=== PATIENT | female | born 1960 | race Caucasian/White ===

== ENCOUNTER → 2016-08-12 | Outpatient (CLI) | payer OTHER ==
[~2016-08-12] MED LIST: ALBU1AER9 INH; ASPEC81 PO; ASPI81TA28 PO; BUPR-79 PO; CLC100 PO; EST1 PO; ESTR0.3T PO; FLX10 PO; LEVO1TAB33 PO; MDRDP21 PO; TOPI25TA99 PO; VALA1TAB2 PO; VNTHFA/IN INH; WLLSR150 PO
[2016-08-12 09:31] LABS: BASO % 0.8 %; BASO ABS # 0.06 K/uL (0-0.2); COMPLETE YES; EOS % 3.7 %; HEMATOCRIT 47.8 % (37-47); IG% 0.3 %; LYMPH % 29.4 %; LYMPH ABS # 2.08 K/uL (1.2-3.4); MEAN CELL VOLUME 91.6 fL (80-100); MEAN CORPUSCULAR HEMOGLOBIN 31.2 pg (25-34); MEAN CORPUSCULAR HGB CONC 34.1 g/dl (32-36); MEAN PLATELET VOLUME 11.1 fL (7.4-10.4); MONO % 7.5 %; NEUT % 58.3 %; PLATELET COUNT 230 K/uL (130-400); RED BLOOD COUNT 5.22 M/uL (4.2-5.4); WHITE BLOOD COUNT 7.08 K/uL (4.8-10.8)
[2016-08-12 10:03] LABS: ALT/SGPT 23 U/L (12-78); BLOOD UREA NITROGEN 13 mg/dl (7-18); BUN/CREATININE RATIO 13.8 (10-20); CARBON DIOXIDE 27 mmol/L (21-32); CHLORIDE 107 mmol/L (98-107); CREATININE 0.92 mg/dl (0.60-1.20); GLUCOSE 71 mg/dl (70-99); POTASSIUM 4.1 mmol/L (3.5-5.1); SODIUM 140 mmol/L (136-145)
[2016-08-12 10:06] LABS: ALB/GLOB RATIO 1.1 (0.9-2); ALKALINE PHOSPHATASE 86 U/L (45-117); AST/SGOT 15 U/L (15-37)
[2016-08-22 10:54] LABS: O&P SOURCE OTHER-STOOL
== END | disposition home or self-care (01) ==
LOC: C.LAB 08:31
PROVIDERS: ATTEND Physician Assistant
DX: R19.7 Diarrhea, unspecified (principal)

== ENCOUNTER 2016-10-26 10:03 | Emergency (ER) | payer OTHER ==
[~2016-10-26] VITALS: Ht 160 cm; Wt 63.1 kg
[~2016-10-26 10:03] MED LIST changes: -ASPI81TA28 PO; -EST1 PO; -VNTHFA/IN INH; -WLLSR150 PO
[2016-10-26 10:05] VITALS: TEMP 36.5; Ht 160 cm; Wt 63.1 kg
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
[2016-10-26] MEDS ORDERED: WLLSR150 PO (11:11)
[2016-10-26] MEDS ORDERED: VNTHFA/IN INH (11:11)
[2016-10-26] MEDS ORDERED: ASPI81TA28 PO (11:11)
[2016-10-26] MEDS ORDERED: EST1 PO (11:11)
[2016-10-26 11:21] VITALS: BP 135/82; PULSE 76; O2SAT 95
== END 2016-10-26 11:21 | disposition home or self-care (01) ==
LOC: C.EDB 10:04 → C.EDC 11:21
DX: M54.2 Cervicalgia (principal); V43.52XA Car driver injured in collision with other type car in traffic accident, initial encounter; F17.200 Nicotine dependence, unspecified, uncomplicated; Z79.82 Long term (current) use of aspirin; Z79.899 Other long term (current) drug therapy

== ENCOUNTER 2017-06-20 12:23 | Emergency (ER) | payer OTHER ==
[~2017-06-20] VITALS: Ht 160 cm; Wt 65.2 kg
[~2017-06-20 12:23] MED LIST changes: -ALBU1AER9 INH; -ASPEC81 PO; +ASPI81TA28 PO; -BUPR-79 PO; -CLC100 PO; +CYM/30 PO; +DICL-201 PO; +EST1 PO; -ESTR0.3T PO; +GABA-113 PO; -LEVO1TAB33 PO; -MDRDP21 PO; -TOPI25TA99 PO; -VALA1TAB2 PO; +VNTHFA/IN INH; +WLLSR150 PO; +ZOLM1TAB3 PO
[2017-06-20 12:27] VITALS: TEMP 36.6; Ht 160 cm; Wt 65.2 kg
[2017-06-20] MEDS ORDERED: MoRPHine SULFATE 4 MG/ML 1 ML CARP\\VIAL IV STA (12:39)
[2017-06-20] MEDS ORDERED: ONDANSETRON INJ 2 MG/ML 2 ML VIAL IV STA (12:39)
[2017-06-20 13:16] LABS: BASO ABS # 0.07 K/uL (0-0.2); EOS ABS # 0.27 K/uL (0-0.5); HEMATOCRIT 44.6 % (37-47); HEMOGLOBIN 15.9 g/dL (12.0-16.0); IG# 0.01 K/uL (0.00-0.02); LYMPH ABS # 2.11 K/uL (1.2-3.4); MEAN CELL VOLUME 88.3 fL (80-100); MEAN CORPUSCULAR HEMOGLOBIN 31.5 pg (25-34); MEAN CORPUSCULAR HGB CONC 35.7 g/dl (32-36); MEAN PLATELET VOLUME 10.9 fL (7.4-10.4); MONO % 6.6 %; MONO ABS # 0.45 K/uL (0.11-0.59); NEUT % 57.3 %; NEUT ABS # 3.89 K/uL (1.4-6.5); PLATELET COUNT 239 K/uL (130-400); RED CELL DISTRIBUTION WIDTH CV 13.2 % (11.5-14.5); RED CELL DISTRIBUTION WIDTH SD 42.6 fL (36.4-46.3)
--- NOTE | 2017-06-20 13:29 | DIAGNOSTIC IMAGING REPORT ---
CT SCAN OF THE ABDOMEN AND PELVIS WITHOUT CONTRAST CLINICAL HISTORY: Severe left flank pain COMPARISON STUDY: CT scan of chest dated 07/02/2013 TECHNIQUE: CT scan of the abdomen and pelvis was performed from the lung bases to the proximal femurs. Images are reviewed in the axial, sagittal, and coronal planes. IV contrast was not administered for this examination. A dose lowering technique was utilized adhering to the principles of ALARA. CT DOSE: FINDINGS: Lower chest: There is suspected underlying pulmonary emphysema. There are dependent atelectatic changes. There is a small right-sided Bochdalek hernia. Liver: There is a stable and therefore likely benign indeterminate 14 mm hypodensity within the left hepatic lobe containing internal calcifications. 2 additional smaller left lobe hypodensities approach water attenuation likely represent cysts. There is a to small to characterize 4 mm hypodensity within the right hepatic lobe Gallbladder: Unremarkable. Spleen: Normal in size and attenuation. Pancreas: Unremarkable. Adrenal glands: Unremarkable. Kidneys: There are multiple bilateral tiny renal calculi. There is very slight prominence the right renal pelvis and ureter. This is of doubtful clinical significance as the patient's pain is reportedly left-sided. No ureteral or bladder calculi are visualized. Bowel: There are no transition zones indicate bowel obstruction. There is colonic diverticulosis. There are no acute peridiverticular inflammatory changes. The appendix is felt to be normal. Peritoneum: There is no intraperitoneal free air or abdominal ascites. Vasculature: The abdominal aorta is normal in course and caliber. Adenopathy: None. Pelvic viscera: The uterus is surgically absent Skeletal structures: No destructive osseous lesions are seen. IMPRESSION: 1. No evidence of bowel obstruction. No evidence of free air 2. Normal appendix 3. Diverticulosis. No evidence of acute diverticulitis 4. Bilateral nephrolithiasis. No ureteral calculi identified. Electronically signed by: Femi Martinez M.D. 06/20/2017 1:28 PM Dictated Date/Time: 06/20/2017 1:21 PM
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
[2017-06-20 13:36] LABS: CALCIUM 9.2 mg/dl (8.5-10.1); CREATININE 0.84 mg/dl (0.60-1.20)
[2017-06-20] MEDS ORDERED: OXYCODONE HCL IR 5 MG TAB (IMMEDIATE RELEASE) PO STA (14:14)
[2017-06-20 14:39] VITALS: BP 130/85; PULSE 66; O2SAT 99
[2017-06-20] MEDS ORDERED: OXYC1TAB3 PO (14:40)
--- NOTE | 2017-06-20 18:42 | EMERGENCY ROOM VISIT NOTE ---
History Report prepared by Sammi: David Valentine Under the Supervision of: Dr. Adam Christopher M.D. First contact with patient: 12:31 Chief Complaint: FLANK PAIN Stated Complaint: SEVERE PAIN IN L SIDE History of Present Illness The patient is a 57 year old female who presents to the Emergency Room with complaints of persistent left-sided flank pain that started around 2200 last night. She states that she was just sitting down when the pain came on. She notes that there is a consistent soreness and an intermittent shooting pain. She says that the pain goes down into her left buttock. The patient states that the pain worsens with movement, urination, and coughing. She adds that she has had some dizziness, and notes that there is no burning with urination but it feels "warm" when she urinates. She says that she can "feel the warmth". The patient notes that she called her primary care physician earlier today, and was told to call pain management. Pain management then told her to come here for evaluation, especially since the pain is "up high" and hurts to the touch. The patient has a history of degenerative disc disease, and goes to pain management for ablations and blocks. She notes that she has an extensive history of back problems and sciatic nerve problems, but says that this pain does not feel like a sciatic nerve problem. She states that she is due for another ablation on the , and had a block done 2 months ago. The patient says that she is on muscle relaxers, Gabapentin, and Tramadol, but nothing really works for her chronic pain. She adds that she has been healthy otherwise, and denies any fevers, vomiting, abdominal pain, or blood in her urine. Source of History: patient Onset: 0 last night Position: other (left flank) Quality: ache, other (shooting) Timing: other (persistent) Modifying Factors (Worsening): movement, other (coughing, urinating) Associated Symptoms: + urinary symptoms (feels warm, denies pain or blood), No fevers, No vomiting, No abdominal pain Note: Associated symptoms: Pain down to left buttock. Dizziness. Review of Systems See HPI for pertinent positives & negatives. A total of 10 systems reviewed and were otherwise negative. Past Medical & Surgical Medical Problems: (1) Bronchitis (2) Degenerative disc disease Family History Diabetes mellitus Heart disease Hypertension Seizures Social History Smoking Status: Current Every Day Smoker Drug Use: none Housing Status: lives alone Occupation Status: employed Current/Historical Medications Scheduled Aspirin (Aspirin Ec), 81 MG PO DAILY Bupropion HCl (Bupropion HCl Sr), 1 TAB PO BID Duloxetine HCl (Cymbalta), 1 CAP PO DAILY Estradiol (Estradiol), 1 TAB PO DAILY Gabapentin (Neurontin), 300 MG PO BID Zolmitriptan (Zomig), 5 MG PO PRN Scheduled PRN Albuterol Hfa (Ventolin Hfa), 2-4 PUFFS INH Q6H PRN for SOB/Wheezing Cyclobenzaprine HCl (Cyclobenzaprine HCl), 5-10 MG PO TID PRN for Pain Diclofenac (Voltaren), 75 MG PO BID PRN for prn Oxycodone Ir (Roxicodone Ir), 5 MG PO Q4H PRN for Pain Allergies Coded Allergies: Sulfa Drugs (Verified Allergy, Mild, 06/20/17) Sulfamethoxazole (Verified Allergy, Mild, 06/20/17) Trimethoprim (Verified Allergy, Mild, 06/20/17) Penicillins (Verified Allergy, Unknown, 06/20/17) Physical Exam Vital Signs Date Time Temp Pulse Resp B/P (MAP) Pulse Ox O2 Delivery O2 Flow Rate FiO2 06/20/17 14:39 66 16 130/85 99 06/20/17 12:27 36.6 72 20 122/77 96 Room Air Physical Exam Constitutional: Vital signs reviewed. Eyes: Pupils are equal round reactive to light. Conjunctiva are noninjected. ENT: Pharynx is clear without erythema or exudate. Mucous membranes are moist. Neck supple without meningeal signs. Respiratory: Clear to auscultation bilaterally. Breath sounds are equal bilaterally. Cardiovascular: Regular rate and rhythm. No rubs or gallops. GI: Soft, nondistended and nontender. Bowel sounds are present. Musculoskeletal: No midline tenderness to the thoracic or lumbosacral spine. No CVA tenderness. Positive straight leg raise at 10 degrees on left side, negative on right. Integumentary: No cyanosis. Neurological: The patient is awake and alert. No focal deficits. Motor and sensation intact in lower extremities. Psychiatric: Normal affect. Medical Decision & Procedures ER Provider Diagnostic Interpretation: CT results as stated below per my review and radiologist interpretation. LUMBAR SPINE WITHOUT CLINICAL HISTORY: 57 years-old Female presenting with eval for fx, left flank pain, pain began at 10:00 PM last night. TECHNIQUE: Multidetector CT of the lumbar spine was performed without the use of intravenous contrast. IV contrast: None. A dose lowering technique was used consistent with the principles of ALARA (as low as reasonably achievable). COMPARISON: Plain radiographs of the lumbar spine from 01/25/2016. CT DOSE (mGy.cm): The estimated cumulative dose is 665.43 mGy.cm. FINDINGS: Associate Product Manager topogram: Unremarkable. Normal lumbar lordosis. No scoliosis. Vertebral bodies maintain normal height and alignment. Intervertebral disc heights preserved. Mild anterolateral osteophytosis. No osseous neural foraminal or spinal canal narrowing. Allowing for limitations of CT, no convincing evidence of a significant disc bulge though small disc bulges may be present. There may be soft tissue narrowing of the left neural foramina at L4-5 (series 401 image 28). No acute fracture or subluxation. Mild degenerative changes of the sacroiliac joints. Visualized portion of the sacrum intact. Soft tissues demonstrate nonobstructing bilateral renal calculi. IMPRESSION: 1. No acute osseous injury. 2. Mild multilevel degenerative changes with suspected soft tissue narrowing of the left neural foramina at L4-5. 3. Bilateral nonobstructing renal calculi. Electronically signed by: Jose Reyes M.D. 06/20/2017 1:31 PM Dictated Date/Time: 06/20/2017 1:[address] SCAN OF THE ABDOMEN AND PELVIS WITHOUT CONTRAST CLINICAL HISTORY: Severe left flank pain COMPARISON STUDY: CT scan of chest dated 07/02/2013 TECHNIQUE: CT scan of the abdomen and pelvis was performed from the lung bases to the proximal femurs. Images are reviewed in the axial, sagittal, and coronal planes. IV contrast was not administered for this examination. A dose lowering technique was utilized adhering to the principles of ALARA. CT DOSE: FINDINGS: Lower chest: There is suspected underlying pulmonary emphysema. There are dependent atelectatic changes. There is a small right-sided Bochdalek hernia. Liver: There is a stable and therefore likely benign indeterminate 14 mm hypodensity within the left hepatic lobe containing internal calcifications. 2 additional smaller left lobe hypodensities approach water attenuation likely represent cysts. There is a to small to characterize 4 mm hypodensity within the right hepatic lobe Gallbladder: Unremarkable. Spleen: Normal in size and attenuation. Pancreas: Unremarkable. Adrenal glands: Unremarkable. Kidneys: There are multiple bilateral tiny renal calculi. There is very slight prominence the right renal pelvis and ureter. This is of doubtful clinical significance as the patient's pain is reportedly left-sided. No ureteral or bladder calculi are visualized. Bowel: There are no transition zones indicate bowel obstruction. There is colonic diverticulosis. There are no acute peridiverticular inflammatory changes. The appendix is felt to be normal. Peritoneum: There is no intraperitoneal free air or abdominal ascites. Vasculature: The abdominal aorta is normal in course and caliber. Adenopathy: None. Pelvic viscera: The uterus is surgically absent Skeletal structures: No destructive osseous lesions are seen. IMPRESSION: 1. No evidence of bowel obstruction. No evidence of free air 2. Normal appendix 3. Diverticulosis. No evidence of acute diverticulitis 4. Bilateral nephrolithiasis. No ureteral calculi identified. Electronically signed by: Femi Martinez M.D. 06/20/2017 1:28 PM Dictated Date/Time: 06/20/2017 1:21 PM Laboratory Results 06/20/17 13:00 Red Blood Count 5.05, Mean Corpuscular Volume 88.3, Mean Corpuscular Hemoglobin 31.5, Mean Corpuscular Hemoglobin Concent 35.7, Mean Platelet Volume 10.9, Neutrophils (%) (Auto) 57.3, Lymphocytes (%) (Auto) 31.0, Monocytes (%) (Auto) 6.6, Eosinophils (%) (Auto) 4.0, Basophils (%) (Auto) 1.0, Neutrophils # (Auto) 3.89, Lymphocytes # (Auto) 2.11, Monocytes # (Auto) 0.45, Eosinophils # (Auto) 0.27, Basophils # (Auto) 0.07 06/20/17 13:00 Test 06/20/17 13:00 White Blood Count 6.80 K/uL (4.8-10.8) Red Blood Count 5.05 M/uL (4.2-5.4) Hemoglobin 15.9 g/dL (12.0-16.0) Hematocrit 44.6 % (37-47) Mean Corpuscular Volume 88.3 fL (80-100) Mean Corpuscular Hemoglobin 31.5 pg (25-34) Mean Corpuscular Hemoglobin Concent 35.7 g/dl (32-36) Platelet Count 239 K/uL (130-400) Mean Platelet Volume 10.9 fL (7.4-10.4) Neutrophils (%) (Auto) 57.3 % Lymphocytes (%) (Auto) 31.0 % Monocytes (%) (Auto) 6.6 % Eosinophils (%) (Auto) 4.0 % Basophils (%) (Auto) 1.0 % Neutrophils # (Auto) 3.89 K/uL (1.4-6.5) Lymphocytes # (Auto) 2.11 K/uL (1.2-3.4) Monocytes # (Auto) 0.45 K/uL (0.11-0.59) Eosinophils # (Auto) 0.27 K/uL (0-0.5) Basophils # (Auto) 0.07 K/uL (0-0.2) RDW Standard Deviation 42.6 fL (36.4-46.3) RDW Coefficient of Variation 13.2 % (11.5-14.5) Immature Granulocyte % (Auto) 0.1 % Immature Granulocyte # (Auto) 0.01 K/uL (0.00-0.02) Urine Color YELLOW Urine Appearance CLEAR (CLEAR) Urine pH 7.5 (4.5-7.5) Urine Specific [place] 1.010 (1.000-1.030) Urine Protein NEG (NEG) Urine Glucose (UA) NEG (NEG) Urine Ketones NEG (NEG) Urine Occult Blood NEG (NEG) Urine Nitrite NEG (NEG) Urine Bilirubin NEG (NEG) Urine Urobilinogen NEG (NEG) Urine Leukocyte Esterase NEG (NEG) Anion Gap 6.0 mmol/L (3-11) Est Creatinine Clear Calc Drug Dose 68.7 ml/min Estimated GFR () 90.7 Estimated GFR (Non- 78.2 BUN/Creatinine Ratio 11.9 (10-20) Calcium Level 9.2 mg/dl (8.5-10.1) Lipase 101 U/L (73-393) Laboratory results as reviewed by me. Medications Administered Medications (Trade) Dose Ordered Sig/Lei Route Start Time Stop Time Status Last Admin Dose Admin Morphine Sulfate (MoRPHine SULFATE INJ) 4 mg ONE STAT IV 06/20/17 12:39 06/20/17 12:40 DC 06/20/17 13:00 4 MG Ondansetron HCl (Zofran Inj) 4 mg NOW STAT IV 06/20/17 12:39 06/20/17 12:40 DC 06/20/17 13:00 4 MG Oxycodone HCl (Roxicodone Immediate Rel Tab) 5 mg NOW STAT PO 06/20/17 14:14 06/20/17 14:18 DC 06/20/17 14:36 5 MG ED Course 1232: The patient was evaluated in room B7. A complete history and physical exam was performed. 1239: Zofran Inj 4 mg IV, Morphine Sulfate Inj 4 mg IV. 1413: Upon reevaluation, the patient still has some pain. She will follow-up with pain management. I discussed today's test results with her. She verbalized agreement of the treatment plan. She was discharged home. 1414: Roxicodone Immediate Rel Tab 5 mg PO. Medical Decision This is a 57-year-old female presents with left-sided low back and flank pain. Differential diagnosis includes sacroiliitis, spinal stenosis, lumbar disc disease, kidney stone, UTI, pyelonephritis. I did perform a limited focused review of portions of the patient's old chart on the electronic medical record. The patient had a bilateral L3, L4, L5 medial branch block by Dr. Anderson in April. I did evaluate the patient as noted above. Patient is presenting with left sided low back pain. She states the pain is worse with movement and has a long- standing history of low back pain followed by pain management. She was concerned today because she thought the pain was higher up and might be affecting her kidneys. She denies any burning with urination but states that her urine is warmer than usual. IV access was established. I did treat the patient with IV morphine and Zofran. I did order and personally review the patient's urinalysis as described above. There is no evidence of blood or infection. I did order and review the patient's blood work as noted in the electronic medical record. Her white blood cell count is not elevated. Kidney function is unremarkable. I did order a CT of the abdomen and pelvis and lumbar spine. I did review the images myself as well as the radiology report as described above. There is no evidence of ureteral calculi or hydronephrosis. She does have intrarenal calculi. She also has diverticulosis. She does have degenerative changes in her spine without fracture. I did discuss the test results with the patient. She was still having pain and so she was given oxycodone. She was advised to follow with pain management and given a prescription for oxycodone. She was given precautions regarding this medication and advised to use it very sparingly. She was discharged in good condition. [place] Drug Monitoring Program Search Results: patient reviewed within database, no issues identified Medication Reconcilliation Current Medication List: was personally reviewed by me Blood Pressure Screening Patient's blood pressure: Normal blood pressure Impression Primary Impression: Left low back pain Additional Impressions: Diverticulosis Kidney stone Scribe Attestation The scribe's documentation has been prepared under my direct and personally reviewed by me in its entirety. I confirm that the note above accurately reflects all work, treatment, procedures, and medical decision making performed by me. Departure Information Dispostion Home / Self-Care Prescriptions Oxycodone Ir (Roxicodone Ir) 5 Mg Tab 5 MG PO Q4H Y for Pain, #20 TAB Prov: Adam Christopher M.D. 06/20/17 Referrals Devang Anton M.D. (PCP) Patient Instructions Back Pain - [facility], [facility] Additional Instructions You have been examined and treated today on an emergency basis only. This is not a substitute for, or an effort to provide, complete comprehensive medical care. It is impossible to recognize and treat all injuries or illnesses in a single emergency department visit. It is therefore important that you follow up closely with your pain management physician. Call as soon as possible for an appointment. Return for worsening symptoms or if you develop fever, vomiting, abdominal pain, loss of control of your bowel or bladder, numbness or weakness to your legs, numbness to your private area, difficulty urinating, or any other concerning symptoms. Problem Qualifiers Primary Impression: Left low back pain Chronicity: acute Sciatica presence: unspecified whether sciatica present Qualified Codes: M54.5 - Low back pain Additional Impressions: Diverticulosis Diverticulosis site: diverticulosis of large intestine Diverticulosis bleeding: diverticulosis without bleeding Qualified Codes: K57.30 - Diverticulosis of large intestine without perforation or abscess without bleeding
== END 2017-06-20 14:40 | disposition home or self-care (01) ==
LOC: C.EDB 12:24
DX: K57.30 Diverticulosis of large intestine without perforation or abscess without bleeding (principal); N20.0 Calculus of kidney; Z79.899 Other long term (current) drug therapy; G89.29 Other chronic pain; F17.210 Nicotine dependence, cigarettes, uncomplicated; Z83.3 Family history of diabetes mellitus; Z82.49 Family history of ischemic heart disease and other diseases of the circulatory system; Z82.0 Family history of epilepsy and other diseases of the nervous system; Z79.82 Long term (current) use of aspirin; Z88.2 Allergy status to sulfonamides; Z88.0 Allergy status to penicillin; Z88.8 Allergy status to other drugs, medicaments and biological substances